=== PATIENT | female | born 1970 | race Two or more races ===

== ENCOUNTER 2021-12-19 12:24 | Emergency (ER) | payer OTHER ==
[~2021-12-19] VITALS: Ht 175.3 cm; Wt 110.5 kg
[2021-12-19 12:47] VITALS: BP 189/98
[2021-12-19] MEDS ORDERED: ALPRAZolam 0.25 MG TAB PO ONE (12:55)
[2021-12-19] MEDS ORDERED: XANA0.25 PO (13:24)
== END 2021-12-19 14:14 | disposition home or self-care (01) ==
LOC: M ED 12:24
DX: F43.0 Acute stress reaction (principal); F41.9 Anxiety disorder, unspecified; J45.909 Unspecified asthma, uncomplicated; Z88.1 Allergy status to other antibiotic agents; Z88.8 Allergy status to other drugs, medicaments and biological substances; Z79.899 Other long term (current) drug therapy